=== PATIENT | male | born 1975 | race Caucasian/White ===

== ENCOUNTER 2016-09-15 17:41 | Emergency (ER) | payer SELFPAY ==
[~2016-09-15] VITALS: Ht 170.2 cm; Wt 95.3 kg
[~2016-09-15 17:41] MED LIST: ATI.5 PO
--- NOTE | 2016-09-15 17:45 | NUR ---
Note undone in EDM - 09/15/16 at 1925 by JACQUELINE ADMITTING CALLED PATIENT ON THE FLOOR HAVING SEIZURE. PATIENT WITH PULSE .CALLED FOR HELP.DR RIDLEY NOTIFIED TO SEE PATIENT.PATIENT WAS PLACED ON SIDELYING POSITION.PT WAS VOMITING BLOOD.PATIENT WAS PLACED ON SIDELYING POSITION .
[2016-09-15 18:18] VITALS: BP 162/90
--- NOTE | 2016-09-15 18:33 | NUR ---
MADE AWARE OF EKG RESULT.
--- NOTE | 2016-09-15 18:33 | NUR ---
DR NIEVES MADE AWARE OF HEART RATE 132 AND ELEVATED BP AND FEELING ANXIOUS. ORDERED EKG.
--- NOTE | 2016-09-15 18:45 | NUR ---
ADMITTING CALLED AND NEEDED A NURSE IN HALLWAY.PATIENT ON THE FLOOR AND HAVING SEIZURE. PATIENT WITH PULSE .CALLED FOR HELP.DR RIDLEY NOTIFIED TO SEE PATIENT.PATIENT WAS PLACED ON SIDELYING POSITION.PT WAS VOMITING BLOOD. .AIRWAY PROTECTED.
--- NOTE | 2016-09-15 18:50 | NUR ---
PLACED ON BED.PT IS ALERT KNOWS HIS NAME.
--- NOTE | 2016-09-15 18:55 | NUR ---
PT IS ALERT ORIENTED TO PERSON,PLACE AND TIME .NO SEIZURE NOTED.ON SEIZURE PRECAUTION.AE=315/85.HEART RATE =132.POX=98 PERCENT.RR=18.T=98 DEGREES F .NO CO PAIN NOR SHORTNESS OF BREATH.PER PATIENT HE DIDNT FALL.NO INJURIES NOTED.HE ADMITTED PATIENT HAD A DRINK OF VODKA AND SOMEBODY PUT MEDICINE IN IT.
[2016-09-15] MEDS ORDERED: LORazepam 2 MG/ML VIAL IVP ONE (19:15)
[2016-09-15] MEDS ORDERED: NACL 0.9% 1,000 ML IV ONE (19:15)
--- NOTE | 2016-09-15 19:15 | NUR ---
REPORT GIVEN TO
[2016-09-15 19:53] LABS: BASOPHILS # (AUTO) 0.1 K/uL (0.00-0.22); BASOPHILS % (AUTO) 0.5 % (0.0-2.0); EOSINOPHILS # (AUTO) 0.3 K/uL (0-0.4); EOSINOPHILS % (AUTO) 1.8 % (0.0-4.0); HEMATOCRIT 28.9 % (36-52); HEMOGLOBIN 8.3 g/dL (12.0-18.0); LYMPHOCYTES % (AUTO) 14.3 % (20.5-51.1); MEAN CORPUSCULAR HEMOGLOBIN 19 pg (27-31); MEAN CORPUSCULAR HGB CONC 29 g/dL (33-37); MEAN CORPUSCULAR VOLUME 66 fL (80-94); MONOCYTES # (AUTO) 1.7 K/uL (0.8-1.0); MONOCYTES % (AUTO) 11.8 % (1.7-9.3); NEUTROPHILS % (AUTO) 71.6 % (42.2-75.2); PLATELET COUNT (AUTO) 359 K/uL (140-450); RED BLOOD CELL COUNT(AUTO) 4.37 MIL/uL (4.20-6.10); RED CELL DISTRIBUTION WIDTH 18.1 % (11.6-13.7); WHITE BLOOD COUNT (AUTO) 14.1 K/uL (4.8-10.8)
[2016-09-15 20:18] LABS: INR 1.2 (0.8-1.2); PARTIAL THROMBOPLASTIN TIME 22.4 secs (22-35.6); PROTHROMBIN TIME 11.6 secs (10.8-13.4)
[2016-09-15 20:34] LABS: ANION GAP 23.8 (8-16); CALCIUM 9.4 mg/dL (8.5-10.1); CARBON DIOXIDE 19.9 mmol/L (21-32); CHLORIDE 97 mmol/L (98-107); CREATININE 1.4 mg/dL (0.6-1.3); GFR ARICAN-AMERICAN 73 mL/min (>90); GFR NON ARICAN-AMERICAN 60 mL/min (>90); GLUCOSE 131 mg/dL (74-106); POTASSIUM 3.7 mmol/L (3.5-5.1); SODIUM SERUM 137 mmol/L (136-145); UREA NITROGEN, BLOOD 8 mg/dL (7-18)
[2016-09-15 20:41] LABS: ACETAMINOPHEN < 0.5 ug/ml (10-30); ALANINE AMINOTRANSFERASE 58 U/L (12-78); ALBUMIN 4.1 g/dL (3.4-5.0); ALCOHOL, BLOOD < 3 mg/dL (<3); ALKALINE PHOSPHATASE 108 U/L (46-116); ASPARTATE AMINOTRANSFERASE 86 U/L (15-37); SALICYLATE < 2.8 mg/dL (2.8-20.0); TOTAL BILIRUBIN 1.5 mg/dL (0.0-1.0); TOTAL PROTEIN, SERUM 8.3 g/dL (6.4-8.2)
--- NOTE | 2016-09-15 21:25 | NUR ---
TAKEN TO CT
[2016-09-15 21:31] LABS: AMPHETAMINE, URINE POS. ng/ml (NEG <=1000); BARBITURATE, URINE NEG. ng/ml (NEG <=200); BENZODIAZEPINE, URINE NEG. ng/mL (NEG <=200); CANNABINOID, URINE NEG. ng/mL (NEG <=50); COCAINE, URINE NEG. ng/mL (NEG <=300); OPIATE, URINE NEG. ng/mL (NEG <=2000); PHENCYCLIDINE SCREEN,URINE NEG. ng/mL (NEG <=25)
--- NOTE | 2016-09-15 21:40 | NUR ---
BACK FROM CT SCAN
[2016-09-15 22:50] VITALS: BP 148/79
--- NOTE | 2016-09-15 22:50 | NUR ---
Patient discharged with v/s stable. Written and verbal after care instructions given and explained. Patient alert, oriented and verbalized understanding of instructions. Ambulatory with steady gait. All questions addressed prior to discharge. ID band removed. Patient advised to follow up with PMD. Rx of XANAX 0.5MG PO given. Patient educated on indication of medication including possible reaction and side effects. Opportunity to ask questions provided and answered.
== END 2016-09-15 22:50 | disposition home or self-care (01) ==
LOC: MED 17:41
DX: R56.9 Unspecified convulsions (principal); F19.10 Other psychoactive substance abuse, uncomplicated; R03.0 Elevated blood-pressure reading, without diagnosis of hypertension; F41.9 Anxiety disorder, unspecified
CPT/HCPCS: 36415; 70450; 80053; 80305; 85025; 85610; 85730; 96361; 96374; 99285; G0480; G0482; J2060; J7030